=== PATIENT | female | born 1975 | race Caucasian/White ===

== ENCOUNTER 2016-07-28 09:12 | Emergency (ER) | payer OTHER ==
[2016-07-28 09:54] LABS: HEMOGLOBIN 17.2 gm/dl (12.3-15.3); RED BLOOD COUNT 5.93 M/UL (4.00-5.10); WHITE BLOOD COUNT 10.2 K/UL (4.5-11.0)
[2016-07-28 10:23] LABS: BUN/CREATININE RATIO 20 (0-10)
== END 2016-07-28 12:55 | disposition home or self-care (01) ==
LOC: ER1 09:12
PROVIDERS: Radiology Radiation Oncology
DX: E87.6 Hypokalemia (principal); E86.0 Dehydration; R20.2 Paresthesia of skin; E11.9 Type 2 diabetes mellitus without complications; I10 Essential (primary) hypertension; F17.210 Nicotine dependence, cigarettes, uncomplicated; Z88.0 Allergy status to penicillin; Z79.891 Long term (current) use of opiate analgesic; Z79.82 Long term (current) use of aspirin; Z79.84 Long term (current) use of oral hypoglycemic drugs; Z79.899 Other long term (current) drug therapy
CPT/HCPCS: 36415; 70450; 71010; 80053; 82550; 82553; 83690; 83874; 84484; 85025; 85610; 85730; 93005; 96374; 99284; J2405; J7030